=== PATIENT | female | born 1935 | race Caucasian/White ===

== ENCOUNTER 2022-02-28 09:49 | Outpatient (CLI) | payer MEDICARE ==
[~2022-02-28] VITALS: Ht 165.1 cm; Wt 109.0 kg
[2022-02-28] MEDS ORDERED: MULT-1136 PO (11:43)
[2022-02-28] MEDS ORDERED: ASCO500T16 PO (11:43)
[2022-02-28] MEDS ORDERED: MAGN500C16 PO (11:43)
[2022-02-28] MEDS ORDERED: DIGO125T3 PO (11:43)
[2022-02-28] MEDS ORDERED: FURO40TA4 PO (11:43)
[2022-02-28] MEDS ORDERED: DOCU100C37 PO (11:43)
[2022-02-28] MEDS ORDERED: POTA20PA28 PO (11:43)
[2022-02-28] MEDS ORDERED: LEVO137C4 PO (11:43)
[2022-02-28] MEDS ORDERED: APIX5TAB PO (11:43)
[2022-02-28] MEDS ORDERED: MELA3TAB39 PO (11:43)
[2022-02-28] MEDS ORDERED: DOXY100C5 PO (11:43)
== END 2022-02-28 11:57 | disposition home or self-care (01) ==
LOC: PREOP 09:49
PROVIDERS: ATTEND Orthopaedic Surgery
DX: Z01.818 Encounter for other preprocedural examination (principal)

== ENCOUNTER 2022-03-01 11:47 | Day surgery (SDC) | payer MEDICARE ==
[2022-03-01] VITALS (10 sets, daily range): BP systolic 103–122; BP diastolic 55–94
[~2022-03-01] VITALS: Ht 165 cm; Wt 109.0 kg
[~2022-03-01 11:47] MED LIST: APIX5TAB PO; ASCO500T16 PO; DIGO125T3 PO; DOCU100C37 PO; DOXY100C5 PO; FURO40TA4 PO; LEVO137C4 PO; MAGN500C16 PO; MELA3TAB39 PO; MULT-1136 PO; POTA20PA28 PO
[2022-03-01] MEDS ORDERED: NEO/POLY/BAC (NEOSPORIN) OINT 15 GM TUBE ONE (12:18)
[2022-03-01] MEDS ORDERED: BUPIVACAINE 0.25% 30 ML (SENSORCAINE) VIAL ONE (12:18)
[2022-03-01] MEDS ORDERED: LACTATED RINGERS 1,000 ML IV PRN (13:15)
[2022-03-01] MEDS ORDERED: ONDANSETRON 4 MG/2 ML (SDV) Z0FRAN ONE (13:19)
[2022-03-01] MEDS ORDERED: ROCURONIUM 10 MG/ML 5 ML SYRINGE IV ONE (13:19)
[2022-03-01] MEDS ORDERED: fentaNYL INJ 100 MCG/2 ML AMP ONE (13:19)
[2022-03-01] MEDS ORDERED: LIDOCAINE PF 2% 5 ML (XYLOCAINE) VIAL ONE (13:19)
[2022-03-01] MEDS ORDERED: proPOfol 200 MG/20 ML (DIPRIVAN) VIAL IV ONE (13:19)
[2022-03-01] MEDS ORDERED: NEOSTIGMINE 3 MG/3 ML VIAL ONE (14:20)
[2022-03-01] MEDS ORDERED: GLYCOPYRROLATE 0.2 MG/ML (ROBINUL) 2 ML VIAL ONE (14:20)
[2022-03-01] MEDS ORDERED: SEVOFLURANE (ULTANE) 15 ML INHAL SOLN ONE (14:26)
[2022-03-01] MEDS ORDERED: fentaNYL INJ 100 MCG/2 ML AMP IVP ONE (14:45)
[2022-03-01] MEDS ORDERED: ONDANSETRON 4 MG/2 ML (SDV) Z0FRAN IVP PRN (14:45)
--- NOTE | 2022-03-01 14:51 | Operative Report - Ortho ---
Operative Report Surgeon (s)/Medical Management Trainer (s) Surgeon VIDA SCHAEFER MD Medical Management Trainer n/a Pre-Operative Diagnosis LEFT FOOT ULCERATION WITH EXPOSED HARDWARE Post-Operative Diagnosis same Operative Report Date of Procedure: Mar 01, 2022 Name of Procedure Performed: Removal of Left Foot Screw Description & Findings After obtaining consent and marking the patient in the preoperative holding area, the patient was taken to the operating room. General anesthesia was induced. Surgical timeout was taken. Left lower extremity was prepped and draped in the usual sterile fashion. The wound on the posterior aspect of the heel was explored. Rongeur was used to remove tissue around the perimeter of the head of the screw. Appropriate screw nascar driver was identified and fit to the head of the screw. Screw was removed without difficulty. Wound was explored for the second screw head. Second screw head was found to be covered by bone and left in place. Tissue was removed from the wound and sent for culture. Culture swab was obtained from the bone tunnel and sent. Wound was packed and dressed with a well-padded dressing. Patient tolerated the procedure well and was stable to the recovery area. Anesthesia Type General Estimated Blood Loss Less than 50 mL Packing 1/4" gauze Specimen(s) collected/removed Tissue and swab from left heel VIDA SCHAEFER MD Mar 01, 2022 14:51
--- NOTE | 2022-03-01 15:01 | Anesthesia-General Post-Op ---
General Patient Condition Mental Status/LOC: Same as Preop Cardiovascular: Satisfactory Nausea/Vomiting: Absent Respiratory: Satisfactory Pain: Controlled Complications: Absent Post Op Complications Complications None Follow Up Care/Instructions Patient Instructions None needed. Anesthesia/Patient Condition Patient Condition Patient is doing well, no complaints, stable vital signs, no apparent adverse anesthesia problems. No complications reported per nursing. VIDA LUKE CRNA Mar 01, 2022 15:01
--- NOTE | 2022-03-01 17:51 | Diagnostic Imaging Report ---
INDICATION: Hardware removal. 2 intraprocedural images hindfoot Fluoroscopy Time: 14.3 seconds FINDINGS: The hospital radiology department provided fluoroscopic imaging in support of an interventional procedure. No radiologist involvement and/or interpretation. Please reference the operating provider's procedure note. IMPRESSION: Intraprocedural technical imaging provided. Dictated by: Dictated on workstation # [id number]
== END 2022-03-01 17:20 ==
LOC: SDC 11:47
PROVIDERS: ATTEND Orthopaedic Surgery
DX: T84.69XA Infection and inflammatory reaction due to internal fixation device of other site, initial encounter (principal); L97.529 Non-pressure chronic ulcer of other part of left foot with unspecified severity; B95.2 Enterococcus as the cause of diseases classified elsewhere; B96.89 Other specified bacterial agents as the cause of diseases classified elsewhere; E66.01 Morbid (severe) obesity due to excess calories; Y84.8 Other medical procedures as the cause of abnormal reaction of the patient, or of later complication, without mention of misadventure at the time of the procedure; Z68.41 Body mass index [BMI] 40.0-44.9, adult
CPT/HCPCS: 76000; 87070; 87075; 87077; 87081; 87184; 87186; 87205